=== PATIENT | female | born 1970 | race Caucasian/White ===

== ENCOUNTER 2023-03-22 07:24 | Day surgery (SDC) | payer BC ==
[~2023-03-22] VITALS: Ht 170.2 cm; Wt 81.2 kg
[2023-03-22] VITALS (12 sets, daily range): BP systolic 104–161; BP diastolic 71–98; PULSE 68–89; RESP 10–16; TEMP 98.2; O2SAT 95–100
[~2023-03-22 07:24] MED LIST: HYDR25TA4 PO; LEVO75TA PO; famotidine 20mg tablet PO ONE; ringers solution, lacted 1,000 ML IV SCH; tranexamic acid inj. 1,000 MG in normal saline IV soln 100ML IV ONE
[2023-03-22] MEDS ORDERED: LIDOcaine 1% w/EPI 1:100,000 inj. MDV 50 ML VIAL ONE (07:39)
[2023-03-22] MEDS ORDERED: mupirocin 2% ointment 22GM ONE (07:39)
[2023-03-22] MEDS ORDERED: oxymetazoline 15 ML nasal spray NS ONE ×3 (07:39→09:40)
[2023-03-22] MEDS ORDERED: cocaine 4% topical solution 4ml bottle ONE (07:39)
[2023-03-22] MEDS ORDERED: mupirocin 2% nasal ointment 1gm UD NS ONE ×2 (09:40→12:05)
[2023-03-22] MEDS ORDERED: cocaine 4% topical solution 4ml bottle TP ONE (09:40)
[2023-03-22] MEDS ORDERED: epiNEPHrine 1 mg/ml 30ml MDV SQ ONE (09:40)
[2023-03-22] MEDS ORDERED: LIDOcaine 1% w/EPI 1:100,000 30ml vial (MDV) IJ ONE (09:40)
[2023-03-22] MEDS ORDERED: sevoflurane 250ml liquid IH ONE (09:58)
[2023-03-22] MEDS ORDERED: midazolam 1 mg/ML 2ml injection ONE (10:03)
[2023-03-22] MEDS ORDERED: fentaNYL/PF 50MCG/1 ML 2ML syringe ONE (10:03)
[2023-03-22] MEDS ORDERED: propofol inj 20 ML IV ONE (10:06)
[2023-03-22] MEDS ORDERED: tranexamic acid 100mg/ml inj. ONE (10:25)
[2023-03-22] MEDS ORDERED: epiNEPHrine 1 mg/ml 30ml MDV ONE (10:25)
[2023-03-22] MEDS ORDERED: ondansetron/PF 4mg/2ml inj ONE (11:45)
[2023-03-22] MEDS ORDERED: dexamethasone sod phosphate 4mg/ml inj. ONE (11:46)
--- NOTE | 2023-03-22 11:56 | NUR ---
Received from OR via [facility], accompanied by Anesthesiologist and report given by RADHIKA Anesthesiologist. PATIENT WAKING UP, DENIES PAIN, VSS, 20G PIV TO RIGHT AC, BILATERAL COTTONOID DRESSING C/D/I. Addendum: 03/22/23 at 1221 by Josh Dow RN Amended: Links added.
[2023-03-22] MEDS ORDERED: salt irrigation nasal spray 45 ML SPRAY NS PRN (12:05)
[2023-03-22] MEDS ORDERED: meperidine/PF 25mg/ml syringe IV PRN ×2 (12:25)
[2023-03-22] MEDS ORDERED: morphine 4 MG/ML inj SYRINge IV PRN (12:25)
[2023-03-22] MEDS ORDERED: ringers solution, lacted 1,000 ML IV SCH (12:25)
[2023-03-22] MEDS ORDERED: morphine 2 MG/ML inj. syringe IV PRN (12:25)
[2023-03-22] MEDS ORDERED: proCHLORperazine 10 MG/2 ml inj IV PRN (12:25)
[2023-03-22] MEDS ORDERED: ondansetron/PF 4mg/2ml inj IV PRN (12:25)
--- NOTE | 2023-03-22 12:26 | NUR ---
PULLED COTTONOID DRESSING FROM NOSE. NO S/S OF BLEEDING AT THIS TIME. APPLIED GAUZE AND MOSTACHE. PATIENT TOLERATED IT.
[2023-03-22] MEDS: meperidine/PF 25mg/ml syringe IV PRN ×2 (12:31→13:05)
[2023-03-22] MEDS ORDERED: labetalol 20mg/4ml (5mg/ml) syringe IV PRN (13:25)
--- NOTE | 2023-03-22 13:36 | NUR ---
ALL DISCHARGE CRITERIA HAS BEEN MET. VSS, PAIN AT A TOLERABLE LEVEL, ABLE TO SAFELY AMBULATE AND TRANSFER SELF. IV TAKEN OUT WITHOUT ANY COMPLICATIONS. ALL DISCHARGE INSTRUCTIONS COVERED WITH PATIENT AND ALL QUESTIONS ANSWERED. PATIENT TAKEN OUT VIA WHEELCHAIR WITH ALL BELONGINGS TO PERSONAL VEHICLE WHERE FAMILY DROVE PATIENT HOME. Addendum: 03/22/23 at 1345 by Josh Dow RN Amended: Links added.
[2023-03-22] MEDS ORDERED: oxymetazoline 15 ML nasal spray NS SCH (20:00)
== END 2023-03-22 13:36 | disposition home or self-care (01) ==
LOC: PAS 07:24
PROVIDERS: ATTEND Otolaryngology
DX: J34.2 Deviated nasal septum (principal); J34.3 Hypertrophy of nasal turbinates; J32.8 Other chronic sinusitis; J34.89 Other specified disorders of nose and nasal sinuses; I10 Essential (primary) hypertension; Z79.899 Other long term (current) drug therapy; Z98.890 Other specified postprocedural states
CPT/HCPCS: 30140; 30520; 31240; 31254; 31267; 61782; 82948; 93005; A6402; J0171; J1100; J2175; J2250; J2405; J2704; J3010; J3490; J7030; J7050; J7120; Z7506; Z7508; Z7512; A4618; A6449; A7000